=== PATIENT | male | born 1975 | race Caucasian/White ===

== ENCOUNTER 2017-05-14 18:14 | Emergency (ER) | payer SELFPAY ==
[~2017-05-14] VITALS: Ht 182.9 cm; Wt 89.4 kg
[2017-05-14 18:19] VITALS: TEMP 36.6; Ht 182.9 cm; Wt 89.4 kg
[2017-05-14] MEDS ORDERED: TRAMADOL HCL 50 MG TAB PO STA (18:28)
[2017-05-14] MEDS ORDERED: KETOROLAC TROMETHAMINE 60 MG/2 ML VIAL IM STA (18:28)
[2017-05-14] MEDS ORDERED: PREDPOW63 PO (18:30)
[2017-05-14] MEDS ORDERED: VNTHFA/IN INH (18:30)
[2017-05-14] MEDS ORDERED: ADVIN25/60 INH (18:30)
[2017-05-14] MEDS ORDERED: MOME200A INH (18:30)
--- NOTE | 2017-05-14 19:14 | DIAGNOSTIC IMAGING REPORT ---
CHEST 2 VIEWS ROUTINE CLINICAL HISTORY: Cough. Left posterior rib pain. COMPARISON STUDY: No previous studies for comparison. FINDINGS: There is no pneumothorax or pleural effusion. No consolidation is identified. Lobular apparent pleural opacity within the lateral left lower hemithorax likely reflects overlying soft tissues. There is a possible acute nondisplaced fracture of the posterior lateral left ninth rib. Cardiomediastinal silhouette is normal. IMPRESSION: 1. No pneumothorax. Possible acute nondisplaced fracture of the posterior left ninth rib. 2. Lobular left lateral hemithorax opacity. This is likely artifactual/related to overlying soft tissues however a chest CT is recommended. Electronically signed by: Louis Sheehan M.D. 05/14/2017 7:13 PM Dictated Date/Time: 05/14/2017 7:10 PM
[2017-05-14 21:05] VITALS: BP 144/84; PULSE 73; O2SAT 94
--- NOTE | 2017-05-14 21:20 | DIAGNOSTIC IMAGING REPORT ---
CT OF THE CHEST WITHOUT IV CONTRAST CLINICAL HISTORY: Posterior left rib pain. Cough. COMPARISON STUDY: Chest radiograph May 14, 2017. CT DOSE: 420.78 mGy.cm TECHNIQUE: Axial images of the chest were obtained without IV contrast. Images were reviewed in the axial, sagittal, and coronal planes. IV contrast was not administered for this examination. A dose lowering technique was utilized adhering to the principles of ALARA. FINDINGS: No enlarged axillary, mediastinal or hilar lymph nodes are present. The size of the heart is normal and there is no pericardial effusion. There is a healing fracture of the posterior lateral left eighth rib which is likely subacute. There is an acute appearing nondisplaced fracture of the posterior lateral left ninth rib. There are tiny centrilobular nodules throughout the lungs. There is a 3.3 cm pleural groundglass opacity within the right middle lobe. A 6 mm periapical nodule within the right upper lobe shown on axial image 184 [id number] is likely benign. There is mild upper lobe predominant emphysema. Upper abdomen is unremarkable. IMPRESSION: 1. Acute appearing nondisplaced posterior lateral left ninth rib fracture. No pneumothorax. 2. Healing left eighth rib fracture which is likely subacute. 3. Tiny centrilobular nodules throughout the lungs which could reflect an infectious bronchiolitis or respiratory bronchiolitis of interstitial lung disease. Small subpleural right middle lobe groundglass opacity which favors a mild infectious process. A follow-up chest CT in 2 months to ensure resolution is recommended. 4. Mild emphysema. Electronically signed by: Louis Sheehan M.D. 05/14/2017 9:19 PM Dictated Date/Time: 05/14/2017 9:08 PM
[2017-05-14] MEDS ORDERED: OXYC1TAB3 PO (21:37)
[2017-05-14] MEDS ORDERED: AZITTAB PO (21:37)
[2017-05-14] MEDS ORDERED: OXYCODONE IR HOME PACK PO ONE (21:45)
[2017-05-14] MEDS ORDERED: AZITHROMYCIN 250 MG TAB PO ONE (21:45)
--- NOTE | 2017-05-14 22:01 | EMERGENCY ROOM VISIT NOTE ---
History First contact with patient: 18:20 Chief Complaint: BACK PAIN Stated Complaint: BACK RIB PAIN History of Present Illness The patient is a 41 year old male who presents to the Emergency Room with complaints of left posterior rib pain of sudden onset this morning while coughing. The patient reports that he has had a chest cold for the past 3 weeks. He reports that he also had a similar cold 2-3 months ago that resolved on its own. The patient does have a history of asthma. He was seen by his PCP 6 days ago, and provided a prescription for a prednisone taper and antibiotic. The patient reports that he could not afford the antibiotic, therefore only took the prednisone. The patient reports that the cough is worsening. He rates his discomfort a 10 out of 10 that is worsened with deep breathing and movement. He denies any neck pain, abdominal pain, nausea or vomiting. Review of Systems 10 system review was performed and was negative except for pertinent positives and negatives as indicated in history of present illness Past Medical/Surgical History Medical Problems: (1) Asthma Family History Unremarkable Social History Smoking Status: Never Smoker Alcohol Use: occasionally Marital Status: single Housing Status: lives alone Occupation Status: employed Current/Historical Medications Scheduled Albuterol Hfa (Ventolin Hfa), 2-4 PUFFS INH Q6H Azithromycin (Zithromax Z-Connor), 0 PO UD Fluticasone Prop/Salmeterol (Advair Diskus 250/50 60 Dose), 1 PUFF INH BID Mometasone Furoate-Formoterol (Dulera 200/5 Mcg), 1 AER INH BID [Prednisone], 1 TAB PO DIRECTED Scheduled PRN Oxycodone Ir (Roxicodone Ir), 1-2 TAB PO Q4H PRN for Pain Physical Exam Vital Signs Date Time Temp Pulse Resp B/P (MAP) Pulse Ox O2 Delivery O2 Flow Rate FiO2 05/14/17 21:05 73 18 144/84 94 05/14/17 18:19 36.6 90 18 178/134 93 Room Air Physical Exam CONSTITUTIONAL: Healthy and well nourished. Alert and oriented X 3 with positive affect. Patient appears in moderate discomfort from pain. HEENT: Normocephalic, atraumatic. Pupils equal, round and reactive. NECK: Full active range of motion without discomfort. LYMPHATICS: No adenopathy noted. RESPIRATORY: Auscultation shows rhonchi in most hughes. No wheezing or stridor. Deep breathing does worsen the patient's discomfort. CARDIOVASCULAR: Regular rate and rhythm with no murmurs, rubs or gallops. GASTROINTESTINAL: Bowel sounds present in all quadrants. Soft and nontender to palpation. MUSCULOSKELETAL: Examination shows notable tenderness to palpation through the left lower posterior and posterior lateral ribs. No subcutaneous emphysema or flail segment noted. No ecchymosis, erythema or other skin lesions. He has no other focal tenderness through the rib heads or costochondral joints. INTEGUMENTARY: No rash or other significant dermatologic conditions noted. NEUROLOGIC: No focal neurologic deficits noted. Medical Decision & Procedures ER Provider Diagnostic Interpretation: My interpretation of a two-view chest x-ray shows a possible left posterior ninth rib fracture. No pneumothorax noted. The radiologist questions a possible hemithorax opacity versus artifactual finding on x-ray. Radiologist report is as follows: CHEST 2 VIEWS ROUTINE CLINICAL HISTORY: Cough. Left posterior rib pain. COMPARISON STUDY: No previous studies for comparison. FINDINGS: There is no pneumothorax or pleural effusion. No consolidation is identified. Lobular apparent pleural opacity within the lateral left lower hemithorax likely reflects overlying soft tissues. There is a possible acute nondisplaced fracture of the posterior lateral left ninth rib. Cardiomediastinal silhouette is normal. IMPRESSION: 1. No pneumothorax. Possible acute nondisplaced fracture of the posterior left ninth rib. 2. Lobular left lateral hemithorax opacity. This is likely artifactual/related to overlying soft tissues however a chest CT is recommended. Noncontrast CT of the chest shows an acute nondisplaced left posterior ninth rib fracture, and subacute eighth rib fracture, likely from his illness a few months ago. No pneumonia or pneumothorax noted. Acute bronchiolitis is suspected. Radiologist report is as follows: CT OF THE CHEST WITHOUT IV CONTRAST CLINICAL HISTORY: Posterior left rib pain. Cough. COMPARISON STUDY: Chest radiograph May 14, 2017. CT DOSE: 420.78 mGy.cm TECHNIQUE: Axial images of the chest were obtained without IV contrast. Images were reviewed in the axial, sagittal, and coronal planes. IV contrast was not administered for this examination. A dose lowering technique was utilized adhering to the principles of ALARA. FINDINGS: No enlarged axillary, mediastinal or hilar lymph nodes are present. The size of the heart is normal and there is no pericardial effusion. There is a healing fracture of the posterior lateral left eighth rib which is likely subacute. There is an acute appearing nondisplaced fracture of the posterior lateral left ninth rib. There are tiny centrilobular nodules throughout the lungs. There is a 3.3 cm pleural groundglass opacity within the right middle lobe. A 6 mm periapical nodule within the right upper lobe shown on axial image 184 [id number] is likely benign. There is mild upper lobe predominant emphysema. Upper abdomen is unremarkable. IMPRESSION: 1. Acute appearing nondisplaced posterior lateral left ninth rib fracture. No pneumothorax. 2. Healing left eighth rib fracture which is likely subacute. 3. Tiny centrilobular nodules throughout the lungs which could reflect an infectious bronchiolitis or respiratory bronchiolitis of interstitial lung disease. Small subpleural right middle lobe groundglass opacity which favors a mild infectious process. A follow-up chest CT in 2 months to ensure resolution is recommended. 4. Mild emphysema. Medications Administered Medications (Trade) Dose Ordered Sig/Liza Route Start Time Stop Time Status Last Admin Dose Admin Ketorolac Tromethamine (Toradol Inj) 60 mg NOW STAT IM 05/14/17 18:28 05/14/17 18:30 DC 05/14/17 18:42 60 MG Tramadol HCl (Ultram Tab) 50 mg ONE STAT PO 05/14/17 18:28 05/14/17 18:31 DC 05/14/17 18:42 50 MG ED Course Patient history and physical exam were performed. Nurse's notes were reviewed. Vital signs were reviewed showing an O2 saturation of 93% on room air. Blood pressure is 178/134. The patient is afebrile. The patient did drive to the emergency department. He was administered IM Toradol and Ultram for pain. Chest x-ray shows a possible left ninth posterior rib fracture, and possible left hemithorax opacity versus artifactual finding. Radiologist did recommend a CT scan for further evaluation. A noncontrast CT of the chest shows an acute left ninth rib fracture, and subacute eighth rib fracture, likely from his most recent illness. CT also is suggestive of an acute bronchiolitis. The patient is requesting medicine to go home with that is stronger than what was provided in the emergency department. The patient was administered Zithromax 500 mg orally, was provided prescriptions for a Z-Connor and OxyIR 5 mg, dispensed #15 with no refills. He was also provided an OxyIR home pack for tonight until he can get to his pharmacy. An incentive spirometer was also provided to hopefully further minimize his risk for pneumonia. The patient was instructed to follow-up with his PCP in one week for reevaluation, sooner for any other intraoral problems. He was instructed to return to the emergency department for any significant worsening pain, developing fever, shortness of breath or other concerns. The patient was happy with plan of care, voiced understanding of all discharge instructions, and rated his pain a 4 out of 10 at the conclusion of my exam. The patient was also instructed to follow-up with his PCP for blood pressure recheck as his pressure was elevated today. Medical Decision [place] Drug Monitoring Program Search Results: patient reviewed within database, no issues identified Medication Reconcilliation Current Medication List: was personally reviewed by me Blood Pressure Screening Patient's blood pressure: Elevated blood pressure Blood pressure disposition: Referred to PCP Impression Primary Impression: Left rib fracture Additional Impressions: Acute bronchiolitis Elevated blood pressure reading Departure Information Prescriptions Azithromycin (ZITHROMAX Z-CONNOR) 250 Mg Tab 0 PO UD, #1 PKT 2 TABS DAY 1, THEN 1 TAB DAILY FOR 4 DAYS Prov: Arash Sexton PA 05/14/17 Oxycodone Ir (Roxicodone Ir) 5 Mg Tab 1-2 TAB PO Q4H Y for Pain, #15 TAB For Initial Treatment Prov: Arash Sexton PA 05/14/17 Referrals Raj Ulrich M.D. (PCP) Patient Instructions My [facility] Problem Qualifiers Primary Impression: Left rib fracture Encounter type: initial encounter Rib fracture type: single rib Fracture type: closed Qualified Codes: S22.32XA - Fracture of one rib, left side, initial encounter for closed fracture Additional Impressions: Acute bronchiolitis Bronchiolitis organism: unspecified organism Qualified Codes: J21.9 - Acute bronchiolitis, unspecified
== END 2017-05-14 21:55 | disposition home or self-care (01) ==
LOC: C.EDB 18:16
DX: S22.32XA Fracture of one rib, left side, initial encounter for closed fracture (principal); X58.XXXA Exposure to other specified factors, initial encounter; J21.9 Acute bronchiolitis, unspecified; J45.909 Unspecified asthma, uncomplicated